=== PATIENT | female | born 1960 | race Caucasian/White ===

== ENCOUNTER 2017-09-03 01:04 | Emergency (ER) | payer OTHER ==
[~2017-09-03] VITALS: Ht 144.8 cm; Wt 50.0 kg
[~2017-09-03 01:04] MED LIST: ALBU6.7H INH; ALBU8I INH; AMIT25 PO; BUTACAP3 OR; LOTR5CAP3 PO; MONT10TA2 PO; NITR0.4S SL
[2017-09-03 01:10] VITALS: BP 225/125; PULSE 103; RESP 16; TEMP 98.3; O2SAT 96
[2017-09-03 01:12] VITALS: BP 219/109
[2017-09-03 01:21] VITALS: BP 217/108; PULSE 94; RESP 14; O2SAT 99
[2017-09-03] MEDS ORDERED: PROM25TA10 PO (01:35)
[2017-09-03] MEDS ORDERED: LOSA50TA PO (01:35)
[2017-09-03] MEDS ORDERED: CYCL10TA PO (01:35)
[2017-09-03] MEDS ORDERED: PANT40TA3 PO (01:35)
[2017-09-03] MEDS ORDERED: GABA300C5 PO (01:35)
[2017-09-03] MEDS ORDERED: BUTATAB6 PO (01:35)
[2017-09-03] MEDS ORDERED: DULE200A INH (01:35)
[2017-09-03] MEDS ORDERED: ZOLP5TAB3 PO (01:35)
[2017-09-03] MEDS ORDERED: NITR0.4S SL (01:35)
[2017-09-03] MEDS ORDERED: CARV12.52 PO (01:35)
[2017-09-03] MEDS ORDERED: AMIT25TA9 PO (01:35)
[2017-09-03] MEDS ORDERED: HYDR25TA5 PO (01:35)
[2017-09-03] MEDS ORDERED: ZANT150T2 PO (01:35)
--- NOTE | 2017-09-03 01:54 | PD ---
HPI Chief Complaint: Hypertension Time Seen by Provider: 01:47 Travel History International Travel<30 days: No Contact w/Intl Traveler<30days: No Traveled to known affect area: No History of Present Illness HPI Patient is a 57-year-old female, quite pleasant presents emergency department for evaluation of elevated blood pressure. Patient since she went to her neurologist today for follow-up of her chronic migraines and was told that her blood pressure was very high and she was urged to go to an urgent care in the emergency department. She went to a local urgent care, was given "1 pill" and her blood pressure went down. She was told there that if her blood pressure went back up that she should go to the emergency department. Her blood pressure she had monitored throughout the night and been gradually increasing so she decided to come in here and be seen. Patient's only complaint today is of a mild headache which she states is resolving, no chest pain no shortness of breath no abdominal pain. Patient states she has just been monitoring her blood pressure tonight and had no real indication to take it. She has been taking her carvedilol as prescribed. She also states she has a history of CKD 3 and follows a hub associate. PFSH Past Medical History Arthritis: Yes Asthma: Yes Blood Disorders: No Anxiety: Yes Depression: Yes Heart Rhythm Problems: No Cancer: No Cardiovascular Problems: No High Cholesterol: No Chemotherapy: No Chest Pain: Yes Congestive Heart Failure: No COPD: No Coronary Artery Disease: Yes Diabetes: No Diminished Hearing: No Endocrine: No Gastrointestinal Disorders: Yes GERD: Yes Genitourinary: No Hiatal Hernia: Yes Hypertension: Yes Immune Disorder: No Implanted Vascular Access Dvce: No Musculoskeletal: No Neurologic: No Psychiatric: No Reproductive: No Respiratory: No Migraines: Yes Myocardial Infarction: Yes (2007) Radiation Therapy: No Sleep Apnea: No Thyroid Disease: No Tetanus Vaccination: Unknown Influenza Vaccination: No PNEUMOCCOCAL Vaccine (Year): 2 ?: Not : 2 Miscarriage: 1 Past Surgical History Abdominal Surgery: Yes (APPENDECTOMY) Appendectomy: Yes Cholecystectomy: Yes Gynecologic Surgery: Yes (HYSTERECTOMY) Hysterectomy: Yes Neurologic Surgery: No Oral Surgery: Yes (SINUS SURGERY) Other Surgery: Yes (SINUS SURGERY) Social History Alcohol Use: No Tobacco Use: No Substance Use: No Allergies-Medications (Allergen,Severity, Reaction): Coded Allergies: aspirin (Unverified Allergy, Severe, Shortness of Breath, 09/03/17) codeine (Unverified Allergy, Severe, Tachycardia, 09/03/17) diazepam (Unverified Allergy, Severe, 09/03/17) erythromycin base (Unverified Allergy, Severe, VOMITING/DIARRHEA, 09/03/17) Reported Meds & Prescriptions Reported Meds & Active Scripts Active Reported Dulera 120 Act Inh (Mometasone-Formoterol 120 Act Inh) 200-5 Mcg/Act Inh 2 Puff INH BID Zantac (Ranitidine HCl) 150 Mg Tab 75 Mg PO Nitrostat SL (Nitroglycerin) 0.4 Mg Subl 0.4 Mg SL DIRECTED PRN 1 tablet under the tongue as needed for chest pain. Repeat every 5 minutes for a total of 3 DOSES or call 911 if NO relief. Gabapentin 300 Mg Cap 300 Mg PO HS Phenergan (Promethazine HCl) 25 Mg Tablet 25 Mg PO BID PRN Hydrochlorothiazide 25 Mg Tab 25 Mg PO DAILY Jupujnlvlu-Psqtcofztooxa-Vyrbawbh 50-325-40 Mg Tab 1 Tab PO Q12HR PRN Do not exceed 6 tablets/day. Amitriptyline (Amitriptyline HCl) 25 Mg Tab 20 Mg PO HS Carvedilol 12.5 Mg Tab 12.5 Mg PO BID Flexeril (Cyclobenzaprine HCl) 10 Mg Tab 10 Mg PO TID Losartan (Losartan Potassium) 50 Mg Tab 50 Mg PO DAILY Pantoprazole (Pantoprazole Sodium) 40 Mg Tab 40 Mg PO DAILY Zolpidem (Zolpidem Tartrate) 5 Mg Tab 5 Mg PO HS PRN Review of Systems Except as stated in HPI: all other systems reviewed are Neg Physical Exam Narrative GENERAL: Well-developed well-nourished in no obvious distress SKIN: Focused skin assessment warm/dry. HEAD: Atraumatic. Normocephalic. EYES: Pupils equal and round. No scleral icterus. No injection or drainage. ENT: No nasal bleeding or discharge. Mucous membranes pink and moist. NECK: Trachea midline. No JVD. CARDIOVASCULAR: Regular rate and rhythm. No murmur appreciated. RESPIRATORY: No accessory muscle use. Clear to auscultation. Breath sounds equal bilaterally. GASTROINTESTINAL: Abdomen soft, non-tender, nondistended. Hepatic and splenic margins not palpable. MUSCULOSKELETAL: No obvious deformities. No clubbing. No cyanosis. No edema. NEUROLOGICAL: Awake and alert. No obvious cranial nerve deficits. Motor grossly within normal limits. Normal speech. PSYCHIATRIC: Appropriate mood and affect; insight and judgment normal. Data Data Last Documented VS Vital Signs Date Time Temp Pulse Resp B/P (MAP) Pulse Ox O2 Delivery O2 Flow Rate FiO2 09/03/17 03:51 09/03/17 03:25 74 14 97 Room Air 09/03/17 01:10 98.3 Orders Orders Basic Metabolic Panel (Bmp) (09/03/17 01:47) Complete Blood Count With Diff (09/03/17 01:47) Magnesium (Mg) (09/03/17 01:47) Prothrombin Time / Inr (Pt) (09/03/17 01:47) Act Partial Throm Time (Ptt) (09/03/17 01:47) Troponin I (09/03/17 01:47) Ecg Monitoring (09/03/17 01:47) Iv Access Insert/Monitor (09/03/17 01:47) Oximetry (09/03/17 01:47) Oxygen Administration (09/03/17 01:47) Sodium Chloride 0.9% Flush (Ns Flush) (09/03/17 02:00) Ed Discharge Order (09/03/17 03:41) Labs Laboratory Tests Test 09/03/17 01:45 White Blood Count 7.3 TH/MM3 Red Blood Count 3.67 MIL/MM3 Hemoglobin 11.0 GM/DL Hematocrit 32.4 % Mean Corpuscular Volume 88.3 FL Mean Corpuscular Hemoglobin 30.1 PG Mean Corpuscular Hemoglobin Concent 34.0 % Red Cell Distribution Width 13.6 % Platelet Count 331 TH/MM3 Mean Platelet Volume 7.8 FL Neutrophils (%) (Auto) 53.9 % Lymphocytes (%) (Auto) 33.8 % Monocytes (%) (Auto) 9.0 % Eosinophils (%) (Auto) 2.7 % Basophils (%) (Auto) 0.6 % Neutrophils # (Auto) 3.9 TH/MM3 Lymphocytes # (Auto) 2.5 TH/MM3 Monocytes # (Auto) 0.7 TH/MM3 Eosinophils # (Auto) 0.2 TH/MM3 Basophils # (Auto) 0.0 TH/MM3 CBC Comment DIFF FINAL Differential Comment Prothrombin Time 10.2 SEC Prothromb Time International Ratio 1.0 RATIO Activated Partial Thromboplast Time 25.7 SEC Blood Urea Nitrogen 47 MG/DL Creatinine 1.92 MG/DL Random Glucose 99 MG/DL Calcium Level 8.6 MG/DL Magnesium Level 3.2 MG/DL Sodium Level 141 MEQ/L Potassium Level 4.5 MEQ/L Chloride Level 106 MEQ/L Carbon Dioxide Level 26.5 MEQ/L Anion Gap 9 MEQ/L Estimat Glomerular Filtration Rate 27 ML/MIN Troponin I LESS THAN 0.02 NG/ML MDM Medical Decision Making Medical Screen Exam Complete: Yes Emergency Medical Condition: Yes Differential Diagnosis Asymptomatic elevated blood pressure, hypertensive urgency, hypertensive emergency Narrative Course Patient room to the emergency department without intervention her blood pressure went from 217 systolic down to 158 systolic. She was offered medicine for headache and declined, her kidney function is more in line with CKD for than CKD 3, this could represent an acute kidney injury, the patient was offered admission to the hospital but she does have an appointment with her hub associate this which is tomorrow. Patient would be doing well to follow-up with this appointment instead and this is what she would like to do. Discussed returning to criteria continuing monitoring her blood pressure at home and taking her blood pressure medicines as prescribed, discussed return to ED criteria peer Diagnosis Primary Impression: Elevated blood pressure reading Additional Instructions: Follow-up with your hub associate as scheduled, take your blood pressure medicine as prescribed. Tell your hub associate that your creatinine is 1.92 today. Disposition: 01 DISCHARGE HOME Condition: Stable Martin Alberto MD Sep 03, 2017 01:54
[2017-09-03] MEDS ORDERED: SODIUM CHLORIDE 0.9% FLUSH 10 ML FLUSH IVF PRN (02:00)
[2017-09-03 02:10] VITALS: BP 162/77; PULSE 74; RESP 16; O2SAT 98
[2017-09-03 02:20] LABS: AUTOMATED NEUTROPHIL # 3.9 TH/MM3 (1.8-7.7); BASOPHIL % 0.6 % (0.0-2.0); EOSINOPHIL # 0.2 TH/MM3 (0-0.4); EOSINOPHIL % 2.7 % (0.0-4.0); HEMATOCRIT 32.4 % (35.0-46.0); LYMPH % 33.8 % (9.0-44.0); LYMPHOCYTE # 2.5 TH/MM3 (1.0-4.8); MEAN CELL VOLUME 88.3 FL (80.0-100.0); MEAN CORPUSCULAR HEMOGLOBIN 30.1 PG (27.0-34.0); MEAN PLATELET VOLUME 7.8 FL (7.0-11.0); MONOCYTE # 0.7 TH/MM3 (0-0.9); NEUT % 53.9 % (16.0-70.0); PLATELET COUNT 331 TH/MM3 (150-450); RED BLOOD COUNT 3.67 MIL/MM3 (4.00-5.30); RED CELL DISTRIBUTION WIDTH 13.6 % (11.6-17.2); WHITE BLOOD COUNT 7.3 TH/MM3 (4.0-11.0)
[2017-09-03 02:31] LABS: PROTHROMBIN TIME - PATIENT 10.2 SEC (9.8-11.6)
[2017-09-03 02:44] LABS: BICARBONATE 26.5 MEQ/L (21.0-32.0); BLOOD UREA NITROGEN 47 MG/DL (7-18); CALCIUM 8.6 MG/DL (8.5-10.1); CHLORIDE 106 MEQ/L (98-107); CREATININE 1.92 MG/DL (0.50-1.00); GLOMERULAR FILTRATION RATE 27 ML/MIN (>89); GLUCOSE,RANDOM 99 MG/DL (74-106); MAGNESIUM 3.2 MG/DL (1.5-2.5); SODIUM (NA) 141 MEQ/L (136-145)
[2017-09-03 02:47] LABS: TROPONIN I LESS THAN 0.02 NG/ML (0.02-0.05)
[2017-09-03 03:25] VITALS: BP 154/80; PULSE 74; RESP 14; O2SAT 97
--- NOTE | 2017-09-03 07:40 | EKG ---
Date Performed: 09/03/2017 Time Performed: 01:26:25 PTAGE: 57 years EKG: Sinus rhythm INCOMPLETE RIGHT BUNDLE BRANCH BLOCK POSSIBLE RIGHT VENTRICULAR HYPERTROPHY ABNORMAL ECG PREVIOUS TRACING : 03/19/2014 19.04 DOCTOR: Juan R Chandler Interpretating Date/Time 09/03/2017 07:38:58
== END 2017-09-03 04:00 | disposition home or self-care (01) ==
LOC: NEPE 01:04
DX: I12.9 Hypertensive chronic kidney disease with stage 1 through stage 4 chronic kidney disease, or unspecified chronic kidney disease (principal); N18.3 Chronic kidney disease, stage 3 (moderate); K21.9 Gastro-esophageal reflux disease without esophagitis; R94.31 Abnormal electrocardiogram [ECG] [EKG]
CPT/HCPCS: 80048; 83735; 84484; 85025; 85610; 85730; 93005

== ENCOUNTER → 2017-10-16 | Day surgery (SDC) | END | disposition home or self-care (01) | DX: N30.21 Other chronic cystitis with hematuria (principal); R32 Unspecified urinary incontinence; I10 Essential (primary) hypertension | CPT/HCPCS: 00910; 52204; 74420; 85025; 88112; 88305; C1769; J0330; J0690; J1100; J2250; J2270; J2405; J2550; J3010; J7040 ==